=== PATIENT | female | born 1965 | race Two or more races ===

== ENCOUNTER 2025-05-29 17:09 | Emergency (ER) | payer MEDICARE, SELFPAY ==
--- NOTE | ~2025-05-29 | XR_ITS ---
CLINICAL HISTORY: pain 1 view abdomen Comparison: None provided Findings: No pneumoperitoneum or pneumatosis. No abnormal calcifications. No acute fractures. Left pelvic vascular stent. Cholecystectomy clips are present. IMPRESSION: The bowel gas pattern is normal. No significant stool burden. This document has been electronically signed by: Joseph Morfin MD on 05/29/2025 23:14:41
[2025-05-29 17:31] VITALS: BP 148/67; PULSE 100; RESP 18; TEMP 36.9; O2SAT 92; BMI 38.7
--- NOTE | 2025-05-29 17:31 | ED.GENADULT ---
HPI - General Adult General Chief complaint: Urogenital-Female Stated complaint: UTI Time Seen by Provider: 05/29/25 21:41 Source: patient Limitations: no limitations History of Present Illness ED Provider: Adrianna Jiménez PA-C HPI narrative: 60-year-old female with a history of morbid obesity, who presents with multiple complaints. Patient states she is having fullness over the bladder over the past few days. Associated small minimal bowel movements. Denies abdominal distention, nausea, vomiting, inability to pass flatus. In addition, patient is having dysuria with ?visible blood in her urine?. Denies rectal bleeding. Patient also states she is having vaginal dryness and itching with white discharge. Denies back pain, flank pain, fever. Related Data Previous Rx's ?Medication ?Instructions ?Recorded miconazole nitrate 2 % vaginal 1 appful vaginal BEDTIME 7 days 05/30/25 cream (Miconazole-7) #45 grams Allergies Allergy/AdvReac Type Severity Reaction Status Date / Time No Known Allergies Allergy Verified 05/29/25 17:33 Review of Systems Review of Systems: Yes all other systems are reviewed and are negative Constitutional: Constitutional: Denies fatigue and Denies fever(s) Cardiovascular: Cardiovascular: Denies chest pain and Denies dyspnea Respiratory: Respiratory: Denies dyspnea Gastrointestinal: Gastrointestinal: Reports abdominal pain, Denies bloating, Denies hematochezia, Reports constipation, Denies diarrhea, Denies nausea and Denies vomiting Genitourinary: Genitourinary: Reports dysuria, Denies pelvic pain, Denies flank pain, Reports vaginal discharge, Reports vaginal dryness and Reports vaginal pruritus Musculoskeletal: Musculoskeletal: Denies back pain Endocrine: Endocrine: Denies fatigue PMF Past Medical History Attestation statement: The following information was validated with the patient. Physical Exam ED Vital Signs: Vital Signs - 24 hr 05/29/25 17:31 05/29/25 22:55 Temperature 98.5 F 98.0 F Pulse Rate 100 68 Respiratory Rate 18 16 Blood Pressure 148/67 H 137/68 Pulse Oximetry 92 98 Oxygen Delivery Method Room Air Room Air BMI result Body Mass Index 38.7 Const Other: Alert well-appearing Orientation/consciousness: patient oriented x3 Resp Effort & Inspection: normal respiratory effort Cardio Other: Normal peripheral perfusion GI Other: Abdomen is soft, obese, nontender no guarding, stool brown guaiac-negative Other: White copious discharge noted from vagina, normal external genitalia, no CMT, no bleeding from the vagina Skin Other: Warm dry no rash Neuro General: patient oriented x3, gait normal, no focal motor deficits and CN's II-XI intact bilaterally Psych Other: Cooperative Course Course Course Narrative: Rapid medical examination performed in triage by Carol Alaniz PA-C. Patient is a 60 year old assigned female at presenting to the emergency department with vaginal dryness, blood in her urine, and low back pain. Detailed physical exam and review of systems are deferred to the pipefitter helper. Labs ordered. Patient placed back in the waiting room pending room availability and results. Medications Administered Discontinued Medications Generic Name Dose Route Start Last Admin Trade Name Freq PRN Reason Stop Dose Admin Fluconazole 150 mg 05/30/25 01:48 05/30/25 01:56 Fluconazole 150 Mg Tablet PO 05/30/25 01:49 150 mg ONCE ONE Administration Medical Decision Making Medical Decision Making [facility] Narrative: 60-year-old female with a history of morbid obesity, who presents with multiple complaints. Patient states she is having fullness over the bladder over the past few days. Associated small minimal bowel movements. Denies abdominal distention, nausea, vomiting, inability to pass flatus. In addition, patient is having dysuria with ?visible blood in her urine?. Denies rectal bleeding. Patient also states she is having vaginal dryness and itching with white discharge. Denies back pain, flank pain, fever. Problem: Obesity History: Per patient I have considered the following differential diagnoses: Constipation, bowel obstruction, urinary tract infection, pyelonephritis, renal colic, vaginitis, BV versus candidal infection Plan: Patient here with numerous complaints. It sounds as if she may be constipated, without obstructive symptoms, obtaining a KUB. I performed pelvic exam, it looks as if she has BV versus a candidal infection, swab sent. Her urine is in process, she may have a urinary tract infection. She does not have back pain flank pain nausea vomiting or fever to suggest pyelonephritis versus renal colic, she is also very comfortable well-appearing. Additional screening labs are in process as well. I have independently reviewed the following tests: Labs: No leukocytosis, not anemic, patient has candidal vaginitis, urine not infected and no blood in urine KUB:Findings: No pneumoperitoneum or pneumatosis. No abnormal calcifications. No acute fractures. Left pelvic vascular stent. Cholecystectomy clips are present. IMPRESSION: The bowel gas pattern is normal. No significant stool burden. Differential Diagnosis Differential Diagnoses: The differential diagnosis associated with the presentation includes See medical decision-making Admission/Observation Consideration of admission/observation: Escalation of care including admission/observation considered Not applicable Lab Data MDM Lab Attestation statement: I reviewed the patient's lab results. 05/29/25 17:37 05/29/25 17:37 Labs: Lab Results 05/29/25 05/29/25 05/29/25 Range/Units 17:37 21:05 22:22 WBC 7.2 (4.8-10.8) X10*3/uL RBC 4.39 (4.20-5.50) X10*6/uL Hgb 11.4 L (12.0-16.0) g/dl Hct 34.7 L (37.0-47.0) % MCV 79.0 L (80.0-98.0) fL MCH 26.0 L (27.0-33.0) pg MCHC 32.9 (31.0-35.0) g/dl RDW 16.5 H (11.0-16.0) % Plt Count 208 (160-400) X10*3/uL MPV 9.0 L (9.4-12.3) fL Immature Gran % (Auto) 0.6 H (0.0-0.4) % Neut % (Auto) 66.4 (45-73) % Lymph % (Auto) 21.0 (20-40) % [place] % (Auto) 8.8 (2-11) % Eos % (Auto) 2.6 (0-4) % Baso % (Auto) 0.6 (0-2) % Lymph # (Auto) 1.5 (1.2-4.9) X10*3/uL [place] # (Auto) 0.6 (0.1-1.2) X10*3/uL Eos # (Auto) 0.2 (0.0-0.4) X10*3/uL Baso # (Auto) 0.0 (0.0-0.2) X10*3/uL Abs Immat Gran (auto) 0.04 H (0.00-0.03) X10*3/uL Absolute Neuts (auto) 4.8 (2.0-8.3) x10*3/uL Absolute Nucleated RBC 0.000 (0.0-0.012) X10*3/uL Nucleated RBC % (auto) 0.0 (0.0-0.2) /100WBC Sodium 141 (135-145) mmol/L Potassium 4.1 (3.3-5.1) mmol/L Chloride 109 H (96-108) mmol/L Carbon Dioxide 22 (22-29) mmol/L Anion Gap 14 (12-20) BUN 13 (9-16) mg/dL Creatinine 0.91 (0.5-1.4) mg/dL Estim Creat Clear Calc 87.0 Estimated GFR > 60 Random Glucose 166 H (60-115) mg/dL Calcium 8.4 (8.4-10.2) mg/dL Total Bilirubin 0.3 (0.0-1.0) mg/dL AST 33 H (5-31) U/L ALT 26 (0-31) U/L Alkaline Phosphatase 159 H (39-117) U/L Total Protein 7.2 (6.5-8.0) g/dL Albumin 3.9 (3.5-5.0) g/dL Urine Color Yellow Urine Appearance Clear Urine pH 5.0 (5.0-9.0) Ur Specific Cosby 1.015 (1.005-1.025) Urine Protein Negative (Neg-Trace) mg/dL Urine Glucose (UA) >=1000 H (Negative) mg/dL Urine Ketones Negative (Negative) mg/dL Urine Blood Negative (Negative) Urine Nitrite Negative (Negative) Ur Leukocyte Esterase Small (1+) H (Negative) Urine RBC 0-2 (0-2) /HPF Urine WBC 6-10 (0-5) /HPF Ur Squamous Epith Cells 6-10 (0-2) /HPF Urine Bacteria 1+ (None Seen) Hyaline Casts 0-2 (0-2) /LPF Urine Yeast Present Stool Occult Blood NEGATIVE (NEGATIVE) T. vaginalis (PCR) NOT DETECTED (Not Detect) Bact vaginosis (PCR) NEGATIVE (Negative) C. krusei/glabrata (PCR) DETECTED A (Not Detect) Mabel group (PCR) DETECTED A (Not Detect) Radiology Impression Discussion of test interpretation with radiology: I have reviewed the radiologist's reading. Discharge Plan Discharge Clinical Impression: Mabel infection of genital region Patient Disposition: Home, Self-Care Instructions: Yeast Infection (ED) Additional Instructions: Overall, All of your screening labs were within normal limits, your urine is not infected. You were found to have a vaginal yeast infection. See home care instructions. You received a 1 time dose of oral antifungal medication called Diflucan. Use the ointment as directed. There was no blood detected on the guaiac card from your rectal exam. You could simply have been experiencing discoloration from your urine, or your feces. Follow up with your primary care provider as needed. Prescriptions: New miconazole nitrate [Miconazole-7] 2 % cream 1 appful vaginal BEDTIME 7 Days Qty: 45 0RF Interventions: ED Discharge Assessment Last Done: 05/30/25 02:02 Discharge Date/Time: 05/30/25 02:04 Print Language: Welsh
[2025-05-29 17:44] LABS: MANUAL DIFF FLAG NO
[2025-05-29 17:51] LABS: Hematocrit 34.7 % (37.0-47.0); Hemoglobin 11.4 g/dl (12.0-16.0); Imm Gran Abs Auto 0.04 X10*3/uL (0.00-0.03); Imm Gran Pct Auto 0.6 % (0.0-0.4); Lymphocytes Absolute Auto 1.5 X10*3/uL (1.2-4.9); Mean Corpuscular HGB Conc 32.9 g/dl (31.0-35.0); Mean Corpuscular Hemoglobin 26.0 pg (27.0-33.0); Mean Corpuscular Volume 79.0 fL (80.0-98.0); NRBC Abs Auto 0.000 X10*3/uL (0.0-0.012); NRBC Pct Auto 0.0 /100WBC (0.0-0.2); Platelet Count 208 X10*3/uL (160-400); Red Blood Count 4.39 X10*6/uL (4.20-5.50); White Blood Count 7.2 X10*3/uL (4.8-10.8)
[2025-05-29 18:03] LABS: Alanine Aminotransferase 26 U/L (0-31); Albumin Level 3.9 g/dL (3.5-5.0); Alkaline Phosphatase 159 U/L (39-117); Anion Gap 14 (12-20); Aspartate Amino Transferase 33 U/L (5-31); Blood Urea Nitrogen 13 mg/dL (9-16); Calcium 8.4 mg/dL (8.4-10.2); Carbon Dioxide 22 mmol/L (22-29); Chloride 109 mmol/L (96-108); Creatinine Clr Calc Pharmacy 87.0; Estimated Glomerular Filt Rate > 60; Potassium 4.1 mmol/L (3.3-5.1); Sodium 141 mmol/L (135-145); Total Protein 7.2 g/dL (6.5-8.0)
--- OUTSIDE RECORDS SUMMARY | 2025-05-29 18:56 | XMS_ITS | Encounter Summary ---
Author Organization [facility] Address [address] [place] [address] Care Team Providers Care Human Resources Trainer Name Role Phone Maddie Moise MD Unavailable [phone] Taya Montano MD Unavailable [phone] Dodie Pedraza MD Unavailable [phone] Encounter Details Date Type Department Care Team (Late st Contact Info) Description 03/30/2025 Results Follow-Up [facility] [address] [place] [address] Dodie Pedraza MD [address] [place] [address] SURGICAL PATHOLOGY ([facility]) Social History Tobacco Use Types Packs/Day Years Used Date Smoking Tobacco: Never Smokeless Tobacco: Never Alcohol Use Standard Drinks/Week Comments Never 0 (1 standard drink = 0.6 oz pur e alcohol) Comments No Sex and Gender Information Value Date Recorded Sex Assigned at Not on file Legal Sex Female 3:45 PM EDT Gender Identity Not on file Sexual Orientation Not on file documented as of this encounter Plan of Treatment Not on file documented as of this encounter Visit Diagnoses Not on filedocumented in this encounter Care Teams Human Resources Trainer Relationship Specialty Start Date End Date Maddie Moise MD [address] [place] [address] PCP - Payer-assigned PCP 09/21/24 Taya Montano MD [address] [place] [address] Obstetrics & Gynecology 03/03/25 Dodie Pedraza MD [address] [place] [address] Consulting Physician Urology 03/08/25 documented as of this encounter
--- OUTSIDE RECORDS SUMMARY | 2025-05-29 18:56 | XMS_ITS | Clinical Summary ---
Author Organization [facility] Address [address] [place] [address] Care Team Providers Care Ending Machine Operator Name Role Phone Maddie Moise MD Unavailable [phone] Taya Montano MD Unavailable [phone] Dodie Pedraza MD Unavailable Allergies Active Allergy Reactions Criticality Noted Date Comments Hydrocodone-Acetaminophen 03/03/2025 Other Reaction(s): Other (See Comments) Cerner Allergy Text Annotation: Hiral Cates Reaction: nausea and vomiting Metformin Diarrhea High 10/24/2013 Other Reaction(s): Other (See Comments) Cerner Allergy Text Annotation: metFORMIN, Cerner Reaction: diarrhea diarrhea Medications ammonium lactate (AMLACTIN) 12 % cream 5 Active ARIPiprazole (ABILIFY) 15 mg tablet Take 15 mg total (1 tablet) by mouth daily. 5 Active Dexcom G7 Sensor Salma SMARTSIG:Each As Directed 5 Active cetirizine (ZYRTEC) 10 mg tablet Take 20 mg total (2 tablets) by mouth nightly. 5 Active Jardiance 25 mg tablet Take 25 mg total (1 tablet) by mouth daily. 5 Active FLUoxetine (PROZAC) 20 mg capsule Take 20 mg total (1 capsule) by mouth daily. 5 Active fluticasone propion-salmete roL (ADVAIR) 250-50 mcg/dose diskus inhaler Inhale 1 puff into the lungs 2 (two) times daily. 5 Active hydrOXYzine (ATARAX) 50 mg tablet Take 50 mg total (1 tablet) by mouth 2 (two) times daily. 5 Active Lantus Solostar U-100 Insulin 100 unit/mL (3 mL) InPn Inject into the skin Every morning. Active Linzess 290 mcg capsule Take 290 mcg total (1 capsule) by mouth daily. 5 Active ketoconazole (NIZORAL) 2 % cream Apply topically 2 (two) times daily. Active mometasone (ELOCON) 0.1 % cream Apply topically. 5 Active Nystop powder Apply topically daily. Active nystatin-triamc inolone (MYCOLOG) ointment Apply topically daily. 5 Active BD Ultra-Fine Corina Pen Needle 32 gauge x 5/32 Ndle Inject into the skin. 5 Active sucralfate (CARAFATE) 1 gram tablet Take 1 g total (1 tablet) by mouth 4 (four) times daily. Active timolol (TIMOPTIC) 0.5 % ophthalmic solution 1 drop 2 (two) times daily. 5 Active ciprofloxacin HCl (Cipro) 500 mg tablet Take 500 mg total (1 tablet) by mouth 2 (two) times daily. 20 tablet 5 Active phenazopyridine (PYRIDIUM) 200 mg tablet Take 200 mg total (1 tablet) by mouth 3 (three) times daily as needed for Pain (urinary pain). 9 tablet 5 Active Active Problems Problem Noted Date Diagnosed Date Lesion of bladder 03/06/2025 Encounters Date Type Department Care Team Description 03/31/2025 9:15 AM EDT Office Visit [facility] [address] [address] Dodie Pedraza MD Lesion of bladder (Primary Dx); Mixed stress and urge urinary incontinence; Midline cystocele 03/30/2025 Results Follow-Up [facility] [address] [place] [address] Dodie Pedraza MD SURGICAL PATHOLOGY ([facility]) 03/16/2025 8:50 AM EDT - 03/16/2025 9:20 AM EDT Surgery [facility] [address] [facility] [address] [place] [address] Dodie Pedraza MD CYSTOSCOPY BLADDER BIOPSY,. FULGURATION OF TUMOR [id number], [id number] 03/16/2025 7:04 AM EDT - 03/16/2025 10:55 AM EDT Hospital Encounter [facility] [address] [facility] [address] [place] [id number] Dodie Pedraza MD Lesion of bladder Discharge Disposition: Home or Self Care 03/09/2025 Results Follow-Up [facility] [address] [place] [address] Dodie Pedraza MD CULTURE, URINE, ROUTINE 03/08/2025 1:12 PM EDT - 03/08/2025 11:59 PM EDT Hospital Encounter [facility] Imaging [facility] [place] [address] [place] [address] Shlomo Eli MD Abdominal pain, generalized (Primary Dx) Discharge Disposition: Home or Self Care 03/03/2025 10:30 AM EDT Office Visit [facility] [address] [place] [address] Dodie Pedraza MD Lesion of bladder (Primary Dx); Midline cystocele; Mixed stress and urge urinary incontinence 02/28/2025 2:04 PM EDT - 02/28/2025 11:59 PM EDT Hospital Encounter [facility] Imaging [facility] [address] [place] [address] Discharge Disposition: Home or Self Care from Last 3 Months Family History Medical History Relation Name Comments Leukemia Brother Cancer Father Cancer Mother Relation Name Status Comments Brother Father Mother Social History Tobacco Use Types Packs/Day Years Used Date Smoking Tobacco: Never Smokeless Tobacco: Never Tobacco Cessation:Counseling Given: Not Answered Alcohol Use Standard Drinks/Week Comments Never 0 (1 standard drink = 0.6 oz pur e alcohol) Comments No Sex and Gender Information Value Date Recorded Sex Assigned at Not on file Legal Sex Female 3:45 PM EDT Gender Identity Not on file Sexual Orientation Not on file Last Filed Vital Signs Vital Sign Reading Time Taken Comments Blood Pressure 127/70 03/31/2025 8:49 AM EDT Pulse 86 03/31/2025 8:49 AM EDT Temperature 36.5 C (97.7 F) 03/16/2025 10:02 AM EDT Respiratory Rate 14 03/16/2025 10:0 2 AM EDT Oxygen Saturation 97% 03/16/2025 10: 02 AM EDT Inhaled Oxygen Concentration - - Weight 110.9 kg (244 lb 6.4 oz) 03/16/2025 7:32 AM EDT Height 170.2 cm (5' 7 ) 03/14/2025 11:0 8 AM EDT Body Mass Index 38.28 03/14/2025 11:08 AM EDT Plan of Treatment Health Maintenance Due Date Last Done Comments Cologuard 1967 Depression Screening & Follow Up 1967 FIT 1967 FOBT 1967 Flex Sigmoidoscopy 1967 IMM SERIES: Varicella Vaccines (1 of 2 - 13+ 2-dose series) 01/02/1980 HEPATITIS C SCREENING 1985 Social Drivers of Health Assessment 1985 Weight Management (Adult) 1985 Cervical Cancer Screening 01/02/1988 Annual Exam for 40yo+ 2007 Colonoscopy 2017 Colorectal Cancer Screening 2017 IMM SERIES: SARS-COV2 and COVID-19 vaccines ( season) 2024 08/02/2021, 12/18/2020, 11/27/2020 Influenza Vaccine (#1) 2025 , 06/09/2021, 06/20/2014, Additional history exists Breast Cancer Screening 12/30/2025 12/31/19, 12/30/2024, 12/30/2024, Additional history exists IMM SERIES: DTAP/TDAP/TD/DTP (3 - Td or Tdap) 04/16/2032 04/16/2022, 08/21/2014 IMM SERIES: MMR Vaccines Completed 09/17/2019, 11/0 04/2019 IMM SERIES: Zoster Completed 11/09/2020, 08/26/2020 IMM SERIES: Hepatitis A Vaccine Aged Out 04/16/2022, 07/29/2019 No longer eligibl e based on patient's age to complete this topic IMM SERIES: Hepatitis B Vaccine Completed 04/16/2022, 07/29/2019 Pneumococcal (0-5 years) and At-Risk Patients (6 to 64 Years) Completed 04/16/2022, 07/29/2019, 10/24/2013 IMM SERIES: HIB Vaccines Aged Out No longer eligible based on patient's age to complete this topic IMM SERIES: HPV Vaccines Aged Out No longer eligible based on patient's age to complete this topic IMM SERIES: Meningococcal ACWY Aged Out No longer eligible based on patient's age to complete this topic IMM SERIES: Meningococcal B Vaccines Aged Out No longer eligible based on patient's age to complete this topic IMM SERIES: Polio Vaccines Aged Out N o longer eligible based on patient's age to complete this topic IMM SERIES: Rotavirus Vaccines Aged Out No longer eligible based on patient's age to complete this topic Procedures Procedure Name Priority Date/Time Associated Diagnosis Comments POCT AMB URINALYSIS NON AUTO W/O SCOPE Routine 03/31/2025 Lesion of bladder POCT GLUCOSE (BLOOD) Routine 03/16/2025 9:45 AM EDT SURGICAL PATHOLOGY ([facility]) Routine 03/16/2025 9:22 AM EDT Lesion of bladder CYSTOSCOPY 03/16/2025 9:06 AM EDT Lesion of bladder POCT GLUCOSE (BLOOD) Routine 03/16/2025 7:43 AM EDT MR ABDOMEN W WO CONTRAST MRCP Routine 03/08/2025 4:40 PM EDT Idiopathic acute pancreatitis without necrosis or infection ID CYSTOURETHROSCOPY Routine 03/03/2025 12:45 PM EDT Lesion of bladder CULTURE, URINE, ROUTINE Routine 03/03/20 12:45 PM EDT Lesion of bladder POCT AMB URINALYSIS NON AUTO W/O SCOPE Routine 03/03/2025 US RETROPERITONEAL Routine 02/28/2025 3: 01 PM EDT Urinary retention MAMMO SCREENING SONA BILAT W CAD Routine 12/30/2024 9:10 AM EDT Encounter for screening mammogram for malignant neoplasm of breast from Last 3 Months or Most Recently Relevant to Health Maintenance Results * (ABNORMAL) POCT AMB URINALYSIS NON AUTO W/O SCOPE (03/31/2025) SP GRAVITY, POC 1.005(A) 1.007 - 1.030 PH, POC LEUKOCYTES neg NITRITE neg PROTEIN 15 MG/DL GLUCOSE +++ MG/DL KETONES 5 UROBILINOGEN neg BILIRUBIN neg URINE HEMOGLOBIN BLOOD/HGB neg ELIAZAR/UL Clarity, UA Clear Color, UA Yellow WBC RBC 03/31/2025 Dodie Pedraza MD POINT OF CARE TEST ORDERA BLES Final Result * (ABNORMAL) POCT GLUCOSE (Blood) (03/16/2025 9:45 AM EDT) Glucose 150(A) 74 - 100 mg/dL 03/16/2025 9:45 AM EDT Naresh Oneill CRNA POINT OF CARE TEST ORDERABLES Final Result * SURGICAL PATHOLOGY ([facility]) (03/16/2025 9:22 AM EDT) Biopsy URINARY BLADDER STRUCTURE / Unknown 03/16/2025 9:22 AM EDT Biopsy URINARY BLADDER STRUCTURE / Unknown 03/16/2025 9:24 AM EDT Biopsy URINARY BLADDER STRUCTURE / Unknown 03/16/2025 9:24 AM EDT Biopsy URINARY BLADDER STRUCTURE / Unknown 03/16/2025 9:26 AM EDT Dodie Pedraza MD PATHOLOGY/CYTOLOGY ORDERA BLES Final Result * (ABNORMAL) POCT GLUCOSE (Blood) (03/16/2025 7:43 AM EDT) Glucose 168(A) 74 - 100 mg/dL 03/16/2025 7:43 AM EDT Erasmo Resendiz MD POINT OF CARE TEST ORDERABLES Fi nal Result * MRI ABDOMEN W WO CONTRAST MRCP (03/08/2025 4:40 PM EDT) Anatomical Region Laterality Modality Abdomen, Pelvis Magnetic Resonan ce 03/08/2025 3:56 PM EDT Narrative 03/13/2025 3:32 PM EDT EXAMINATION: MRI ABDOMEN W WO CONTRAST MRCP CLINICAL INDICATION: Female, 60 years old. Idiopathic acute pancreatitis without necrosis or infection TECHNIQUE: Multiplanar, multisequence MRI of the abdomen without and following intravenous administration of intravenous contrast. MRCP sequences were acquired. Unless otherwise specified, incidental thyroid, adrenal, renal, and pulmonary nodules do not require dedicated imaging follow-up. [facility] Reference: Radiology. 2017 Mar; 284(1):228-243. CONTRAST WASTE: 0 CONTRAST: 11 mL Vueway COMPARISON: MRI abdomen 09/27/2021. CT abdomen pelvis 08/29/2024. FINDINGS: Small hiatal hernia. Normal hepatic contour and signal. No enhancing liver lesions. Patent portal venous system. No biliary ductal dilatation. Gallbladder is absent. Normal high T1 signal of the pancreas. There is no pancreatic ductal dilatation. Splenic size is normal. Adrenal glands are normal. Kidneys are symmetric size and enhancement. No hydronephrosis. No discrete solid or cystic renal lesions. No ascites. No enlarged intrapelvic lymph nodes. Aorta is normal caliber. Postsurgical changes of Ed-en-Y gastric bypass. Excluded stomach is unremarkable. The gastrojejunal anastomosis is unremarkable. The remainder the image segments of small and large bowel demonstrate no obstruction or wall thickening. Bone marrow signal is normal. There are no enhancing osseous lesions within the [id number]. IMPRESSION: * Unremarkable MRI appearance of the pancreas. * Postsurgical changes of Ed-en-Y gastric bypass without MRI abnormality. * Small hiatal hernia. Procedure Note Alfredo Loja MD - 03/13/2025 EXAMINATION: MRI ABDOMEN W WO CONTRAST MRCP CLINICAL INDICATION: Female, 60 years old. Idiopathic acute pancreatitiswithout necrosis or infection TECHNIQUE: Multiplanar, multisequence MRI of the abdomen without andfollowing intravenous administration of intravenous contrast. MRCPsequences were acquired. Unless otherwise specified, incidental thyroid,adrenal, renal, and pulmonary nodules do not require dedicated imaging follow-up. [facility] Reference: Radiology. 2017Jul; 284(1):228-243. CONTRAST WASTE: 0 CONTRAST: 11 mL Vueway COMPARISON: MRI abdomen 09/27/2021. CT abdomen pelvis 08/29/2024. FINDINGS: Small hiatal hernia. Normal hepatic contour and signal. No enhancing liver lesions. Patentportal venous system. No biliary ductal dilatation. Gallbladder isabsent. Normal high T1 signal of the pancreas. There is no pancreatic ductaldilatation. Splenic size is normal. Adrenal glands are normal. Kidneys are symmetric size and enhancement. No hydronephrosis. No discretesolid or cystic renal lesions. No ascites. No enlarged intrapelvic lymph nodes. Aorta is normalcaliber. Postsurgical changes of Ed-en-Y gastric bypass. Excluded stomach isunremarkable. The gastrojejunal anastomosis is unremarkable. The remainderthe image segments of small and large bowel demonstrate no obstruction orwall thickening. Bone marrow signal is normal. There are no enhancing osseous lesionswithin the [id number]. IMPRESSION: * Unremarkable MRI appearance of the pancreas. * Postsurgical changes of Ed-en-Y gastric bypass without MRIabnormality. * Small hiatal hernia. Shlomo Eli MD [facility] MRI ORDERABLES Final Result * Case Request: CYSTOSCOPY BLADDER BIOPSY, FULGURATION OF TUMOR (03/06/2025) Dodie Pedraza MD GENERAL SURGICAL ORDERABL ES Final Result * ID CYSTOURETHROSCOPY (03/03/2025 12:45 PM EDT) Narrative Dodie Pedraza MD - 03/03/2025 12:45 PM EDT Dodie Pedraza MD 03/03/2025 12:53 PM Date/Time: 03/03/2025 12:45 PM Performed by: Dodie Pedraza MD Authorized by: Dodie Pedraza MD Procedure(s) Performed: [[id number]] cystourethroscopy Procedure in Detail: PROCEDURE: Cystoscopy INDICATION: concern for bladder lesion on prior cysto DESCRIPTION OF PROCEDURE: After obtaining informed consent patient was brought to the procedure room and placed in the lithotomy position. External genitalia were prepared and draped in the standard sterile fashion. 1% lidocaine was instilled into urethra. Flexible cystourethroscope with video camera was placed under direct vision through the urethra and into the bladder. Entire length of urethra, bladder neck and bladder mucosa were inspected. There was clear efflux seen from both ureteral orifices. Patient tolerated procedure well. There were no complications. FINDINGS: Urethra: normal. No evidence of mesh erosion however the angle of her urethra suggests prolapse may have a closer association with her urinary sx than her exam would suggest Bladder mucosa: areas of cystitis cystica and some diffuse erythematous patches on the posterior wall, as well as to the right of midline. No discrete papillary tumors Ureteral orifices: Normal bilaterally, Orthotopic, and Clear efflux of urine seen Bladder Stones: None Trabeculations: Mild IMPRESSION: erythematous areas in the bladder, no discrete tumor Genitourinary Exam: A speculum was utilized for the exam Normal external genitalia, vulva and vagina Minimally decreased estrogenization Normal urethra, no hypermobility with Valsalva, no leak with Valsalva, no diverticula No urethral caruncle or lesions Pelvic organ prolapse: stage 2 cystocele, cervix reasonable well supported and posterior stage 1 No levator spasm Mutual Fund Manager: Sarah Booth MA Dodie Pedraza MD PROCEDURE/MINOR SURGICAL ORDERABLES Final Result * (ABNORMAL) CULTURE, URINE, ROUTINE (03/03/2025 12:45 PM EDT) Urine Culture, Routine Final report(A) [facility] 1 Result 1 (A) [facility] 1 Comment: Staphylococcus epidermidis Based on resistance to oxacillin this isolate would be resistant to all currently available beta-lactam antimicrobial agents, with the exception of the newer cephalosporins with anti-MRSA activity, such as Ceftaroline Greater than 100,000 colony forming units per mL Antimicrobial Susceptibility [facility] 1 Comment: S = Susceptible; I = Intermediate; R = Resistant P = Positive; N = Negative MICS are expressed in micrograms per mL Antibiotic RSLT#1 RSLT#2 RSLT#3 RSLT#4 Ciprofloxacin S Gentamicin S Levofloxacin S Linezolid S Moxifloxacin S Nitrofurantoin S Oxacillin R Penicillin R Rifampin S Tetracycline S Trimethoprim/Sulfa R Vancomycin S Urine URINE SPECIMEN OBTAINED BY CLEAN CATCH PROCEDURE / Unknown 03/03/2025 12:45 PM EDT 03/04/2025 Narrative [facility] - 03/09/2025 8:10 AM EDT Performed at: - [facility] [address] [id number] Lithograph Press Operator: Yosi Horn MD, Phone: [phone] Dodie Pedraza MD MICROBIOLOGY - GENERAL OR DERABLES Final Result [facility] [address] [place] [id number], [facility] 1 * POCT Urinalysis Non Auto w/o Scope (Dipstick) (03/03/2025) SP GRAVITY, POC 1.015 1.007 - 1.030 PH, POC 6.500 LEUKOCYTES trace NITRITE - PROTEIN - MG/DL GLUCOSE 1000 MG/DL KETONES - UROBILINOGEN - BILIRUBIN - URINE HEMOGLOBIN BLOOD/HGB - ELIAZAR/UL Clarity, UA Color, UA WBC RBC 03/03/2025 Dodie Pedraza MD POINT OF CARE TEST ORDERA BLES Final Result * US RETROPERITONEAL (02/28/2025 3:01 PM EDT) Anatomical Region Laterality Modality Ultrasound 02/28/2025 2:36 PM EDT Narrative 02/28/2025 3:51 PM EDT EXAMINATION: US RETROPERITONEAL CLINICAL INDICATION: Female, 60 years old. Urinary retention TECHNIQUE: Sonogram of the kidneys was performed assessing grayscale appearance and color Doppler flow. COMPARISON: MR abdomen dated September 27, 2021, demonstrating unremarkable appearance of the kidneys FINDINGS: KIDNEYS: There is normal renal cortical echogenicity. The right kidney measures 12.1 x 4.2 x 5.9 cm in size. The left kidney measures 12.6 x 6.8 x 5.9 cm in size. No hydronephrosis. No suspicious renal mass noted. No renal calculi noted. BLADDER: The bladder is normal. Full volume of 775 mL with postvoid residual of 11 mL PERITONEUM: There is no free fluid in the abdomen. IMPRESSION: Normal bilateral renal sonogram. Bladder postvoid residual of 11 mL Procedure Note Ricci Ellis MD - 02/28/2025 EXAMINATION: US RETROPERITONEAL CLINICAL INDICATION: Female, 60 years old. Urinary retention TECHNIQUE: Sonogram of the kidneys was performed assessing grayscale appearance andcolor Doppler flow. COMPARISON: MR abdomen dated September 27, 2021, demonstrating unremarkable appearance ofthe kidneys FINDINGS: KIDNEYS: There is normal renal cortical echogenicity. The right kidneymeasures 12.1 x 4.2 x 5.9 cm in size. The left kidney measures 12.6 x 6.8x 5.9 cm in size. No hydronephrosis. No suspicious renal mass noted. Norenal calculi noted. BLADDER: The bladder is normal. Full volume of 775 mL with postvoidresidual of 11 mL PERITONEUM: There is no free fluid in the abdomen. IMPRESSION: Normal bilateral renal sonogram. Bladder postvoid residual of 11 mL us Taya Montano MD [facility] US ORDERABLES Final Result * MAMMO SCREENING SONA BILAT W CAD (12/30/2024 9:10 AM EDT) Anatomical Region Laterality Modality Breast Mammography 12/30/2024 9:01 AM EDT Narrative 01/05/2025 2:11 PM EDT EXAMINATION: MAMMO SCREENING SONA BILAT W CAD CLINICAL INDICATION: Female, 60 years old. Encounter for screening mammogram for malignant neoplasm of breast TECHNIQUE: Bilateral CC and MLO 2-D and 3-D tomosynthesis projections with reconstructed C views. COMPARISON: 2022, 2021, 2020 DENSITY: Category B. There are scattered areas of fibroglandular density. FINDINGS: No suspicious masses, microcalcifications or areas of architectural distortion. Right breast biopsy markers are stable No breast arterial calcifications. IMPRESSION: No suspicious mammographic findings. Recommend yearly screening mammogram. BI-RADS: 2 - Benign Finding(s) A second reading of the examination was performed using computer-aided detection (CAD). Sherley Bucioalannamell [employer] IM MAMMOGRAPHY ORDERABLES Final Result from Last 3 Months or Most Recently Relevant to Health Maintenance Insurance [employer] MED[employer] ADV [employer] MEDICARE ADV Member Subscriber Plan / Payer (Ef fective 2025-Present) Name:Lexi Reddy Relation to Subscriber:Self Name:Lexi Reddy Payer ID:[id number] (NAIC) Type:Not on file Address: [place] [id number] [employer] MED[employer]ARE ADV Advance Directives For more information, please contact: [phone] * Full Code (Latest Code Status on File) Date Activated Date Inactivated Comments 03/16/2025 7:30 AM 03/16/2025 1:01 PM Care Teams Ending Machine Operator Relationship Specialty Start Date End Date Maddie Moise MD [address] [place] [address] PCP - Payer-assigned PCP 09/21/24 Taya Montano MD [address] [place] [address] Obstetrics & Gynecology 03/03/25 Dodie Pedraza MD [address] [place] [address] Consulting Physician Urology 03/08/25
[2025-05-29 21:12] LABS: Appearance Urine Clear; Glucose Urine UA >=1000 mg/dL (Negative); PH 5.0 (5.0-9.0); Specific Gravity - Urine 1.015 (1.005-1.025); UMIC TRIGGER UACC YES
[2025-05-29 21:28] LABS: UACC Culture Trigger YES
[2025-05-29 22:37] LABS: OBS1 NEGATIVE (NEGATIVE)
[2025-05-29 22:38] LABS: OBS Int Ctl Valid YES
[2025-05-29 22:55] VITALS: BP 137/68; PULSE 68; RESP 16; TEMP 36.7; O2SAT 98
[2025-05-30 01:28] LABS: Bacterial Vaginosis PCR NEGATIVE (Negative); Candida Group PCR DETECTED (Not Detect); Candida glab krusei PCR DETECTED (Not Detect); Trichomonas vaginalis PCR NOT DETECTED (Not Detect)
[2025-05-30 02:00] VITALS: BP 143/64; PULSE 71; RESP 14; TEMP 36.7; O2SAT 98
[2025-05-30 02:02] VITALS: BP 143/64; PULSE 71; RESP 14; TEMP 36.7; O2SAT 98
== END 2025-05-30 02:04 | disposition home or self-care (01) ==
PROVIDERS: Physician Assistant Medical; Emergency Provider Emergency Medicine
DX: B37.31 Acute candidiasis of vulva and vagina (principal); R10.9 Unspecified abdominal pain; R30.0 Dysuria
CPT/HCPCS: 36415; 74018; 80053; 81001; 81515; 82272; 85025; 87086; 99283; 99284

== ENCOUNTER → 2025-05-29 22:30 | Outpatient (BNV) | payer MEDICARE, SELFPAY | PROVIDERS: Emergency Provider Emergency Medicine; Visit Provider Student in an Organized Health Care Education/Training Program | DX: R10.9 Unspecified abdominal pain (principal) | CPT/HCPCS: 74018 ==